=== PATIENT | male | born 1960 | race African-American/Black ===

== ENCOUNTER 2016-11-01 19:09 | Emergency (ER) | payer OTHER ==
--- NOTE | ~2016-11-01 | CT4 ---
[facility] A Service of [facility] RADIOLOGY TEXT RESULTS PATIENT: HERNANDO DÍAZ LOCATION: [facility] : [birth year] UNIT #: [id number] AGE: [address]: Jose David Adkins MD SEX: M ORDER DR: [id number] [facility] [address] [facility] [address] [place], [place] [address] [id number] E MR#: [id number] Acc #: [id number] NAME: HERNANDO DÍAZ : 1960 SEX: M STUDY DATE/TIME: 11/01/2016 19:16 UNIT: NORM ROOM: STUDY DESCRIPTION: CT Abd and Pelv Wo Cont Attending Physician: Jose David Adkins M.D. Ordering Physician: Jose David Adkins M.D. Primary Care Physician: Jeremy Hurst Pa-C MEDICAL IMAGING REPORT This report is preliminary unless electronic signature is present EXAM CT abdomen and pelvis without contrast, 11/01/2016 HISTORY Left flank pain and dysuria for [address] abdomen and pelvis was performed without contrast. This CT exam was performed with one or more of the following radiation dose reduction techniques: automatic exposure control, adjustment of mA and/or kV according to patient size, and iterative reconstruction. CT ABDOMEN: No renal calculi. No hydronephrosis or perinephric stranding. The liver, gallbladder, spleen, and adrenal glands are unremarkable. Fatty infiltration of the pancreas. No bowel dilatation. No ascites. Normal caliber abdominal aorta. CT PELVIS: No free fluid. No bowel dilatation. No adenopathy. IMPRESSION 1. No acute findings in the abdomen or pelvis. 2. No urinary calculi or obstruction. 3. No bowel dilatation. 4. Fatty infiltration of the pancreas. Dictated by... Edouard Mckinnon M.D. THIS IS AN ELECTRONICALLY VERIFIED REPORT Edouard Mckinnon M.D. at 11/02/2016 2:41 PM [facility] A Service of [facility] RADIOLOGY TEXT RESULTS PATIENT: HERNANDO DÍAZ LOCATION: [facility] : [birth year] UNIT #: [id number] AGE: [address]: Jose David Adkins MD SEX: M ORDER DR: ELENITA/carlotta TD: 11/02/2016 01:54 JOB #: [id number] MEDICAL IMAGING REPORT Page 1 of 1 COPY
[2016-11-01 18:37] LABS: URINE SOURCE CLEAN CATCH
[2016-11-01 18:48] LABS: URINE APPEARANCE CLEAR; URINE BILIRUBIN NEG (NEG); URINE BLOOD NEG (NEG); URINE COLOR YELLOW; URINE GLUCOSE NEG (NEG); URINE KETONE NEG (NEG); URINE LEUKOCYTE ESTERASE NEG (NEG); URINE NITRATE NEG (NEG); URINE PH 6.5 (5-8); URINE PROTEIN NEG (NEG); URINE SPECIFIC GRAVITY 1.026 (1.003-1.035)
[2016-11-01 18:53] LABS: CULTURE INDICATED? NO
[~2016-11-01 19:09] MED LIST: ASPIRIN81 M1 PO; BENTYL10 MG PO; BENTYL20 MG PO; CLEOCIN HCL300 M1 PO; COLACE PO; FLEXERIL10 M1 PO; FLEXERIL10 MG PO; GLYBURIDE PO; GOLYTELY SOLU4000 ML PO; IBUPROFEN800 MG PO; LIPITOR PO; LISINOPRIL10 MG PO; LORTAB 10-5001 EACH PO; LORTAB 5/500 TA1 TA1 PO; NAPROSYN250 M1 PO; PHENERGAN25 MG PO; PRILOSEC40 MG PO; VICODIN 5/1 TAB 5/50 PO; ZOFRAN ODT4 MG PO; ZOFRANODT PO
[2016-11-01 19:49] LABS: BASOPHIL% 0.4 % (0-2.5); EOSINOPHIL% 0.6 % (0.0-7.0); HEMOGLOBIN 14.4 gm/dL (13.0-16.0); LYMPHOCYTE# 1.9 X10e3 (1.0-3.5); LYMPHOCYTE% 29.8 % (17.0-45.0); MEAN CELL VOLUME 88.2 FL (83-96); MEAN CORPUSCULAR HEMOGLOBIN 28.7 PG (28-34); MEAN CORPUSCULAR HGB CONC 32.6 g/dL (30-36); MEAN PLATELET VOLUME 9.3 FL (6.5-11.5); MONOCYTE# 0.6 X10e3 (0-1.0); MONOCYTE% 9.1 % (3.0-12.0); NEUTROPHIL# 3.8 X10e3 (1.5-7.1); NEUTROPHIL% 60.1 % (40-75); PLATELET COUNT 148 X10e3 (140-420); RED BLOOD COUNT 4.99 X10e (3.90-5.60); RED CELL DISTRIBUTION WIDTH 14.1 % (11.0-15.5); WHITE BLOOD COUNT 6.4 X10e3 (4.0-10.5)
[2016-11-01 19:50] LABS: DIFF IND NO
[2016-11-01 20:51] LABS: BUN/CREATININE RATIO 13.84; CALCIUM SERUM 8.6 mg/dL (8.4-10.2); CREATININE SERUM 1.3 mg/dL (0.6-1.4); GLOM FILT RATE Estimated 71.7 mL/min (>60); POTASSIUM 4.1 mmol/L (3.5-5.1)
[2016-12-26] MEDS ORDERED: LIPITOR40 MG PO (11:45)
[2016-12-26] MEDS ORDERED: AMARYL PO (11:45)
[2016-12-26] MEDS ORDERED: LOSARTAN POTASS25 MG PO (11:46)
[2016-12-26] MEDS ORDERED: VITAMIN D250000 UNIT PO (11:47)
[2016-12-26] MEDS ORDERED: PROTONIX PO (11:47)
[2016-12-26] MEDS ORDERED: ASPIRIN81 M2 PO (11:47)
== END 2016-11-01 21:50 | disposition home or self-care (01) ==
LOC: CED 19:09
PROVIDERS: Emergency Medicine
DX: R10.9 Unspecified abdominal pain (principal); M79.642 Pain in left hand; E11.65 Type 2 diabetes mellitus with hyperglycemia; R05 Cough; E78.5 Hyperlipidemia, unspecified; I51.9 Heart disease, unspecified; F17.200 Nicotine dependence, unspecified, uncomplicated; Z87.442 Personal history of urinary calculi
CPT/HCPCS: 36415; 74176; 80048; 81003; 83690; 85025; 96374; 99284; J2270

== ENCOUNTER → 2016-12-30 | Day surgery (SDC) | payer OTHER ==
[~2016-12-30] MED LIST changes: +AMARYL PO; +ASPIRIN81 M2 PO; +AUGMENTIN PO; +CLARITIN10 M3 PO; +COZAAR25 MG PO; +FLONASE 0.05% N16 G1 INH; +LIPITOR40 MG PO; +LOSARTAN POTASS25 MG PO; +MELOXICAM15 MG PO; +OCEAN104 ML INH; +OMEPRAZOLE20 M2 PO; +PHENERGAN/CODEINE; +PROTONIX PO; +TYLENOL325 M1 PO; +VITAMIN D250000 UNIT PO
--- NOTE | ~2016-12-30 | OR ---
Unit #: [id number] #: [id number] Patient: HERNANDO DÍAZ [id number] [address] [place], [place] [address] [id number] O MR#: [id number] NAME: HERNANDO DÍAZ ROOM: Date of Procedure: 12/30/2016 Admission Date: 12/30/2016 Surgeon: Oumar Soto M.D. : 1960 Attending Physician: Oumar Soto M.D. Primary Care Physician: Jeremy Hurst Pa-C OPERATIVE REPORT PROCEDURES PERFORMED Esophagogastroduodenoscopy with biopsy, colonoscopy with biopsy, colonoscopy with snare polypectomy. INDICATIONS FOR PROCEDURE The patient with significant epigastric pain, nausea, vomiting, history of GERD, also with average risk for colorectal cancer, undergoing evaluation with upper endoscopy and colonoscopy. MEDICATIONS Monitored anesthesia. POSTOPERATIVE FINDINGS 1. Small segment Ambrocio esophagus. Biopsies taken. 2. Small hiatal hernia. 3. Severe gastritis diffusely, biopsies taken. 4. Normal duodenum and distal duodenum. 5. Polyp along the posterior lip of the IC valve. Biopsies were taken. 6. Polyp, 1 cm, transverse colon, snared and sent for pathology. 7. Good prep. PLAN Follow up on the pathology report. Continue PPI therapy. Repeat colonoscopy in 3 years. DESCRIPTION OF PROCEDURE The patient was explained of the procedure, risks, and benefits along with risks and benefits of anesthesia. He was brought to the endoscopy room. Propofol anesthesia was given. Bite block was placed. The scope was passed down the mouth into the esophagus, stomach, duodenum, and distal duodenum. Findings as described. Biopsies taken. Gently, I pulled the scope out of the patient's mouth. At this time, he was turned around and repositioned for colonoscopy. Rectal exam was done, which was normal. Colonoscope was lubricated, passed up the rectum, advanced under direct vision all the way to the cecum. Cecum was identified by ileocecal valve and appendiceal orifice. There was a possible polyp versus artifact in the posterior lip of the IC valve towards the cecum. Biopsies taken. Other polyps seen in the transverse colon, which was about 1 cm, snared and sent for histopathology. Rest of the colonic mucosa was normal. I retroflexed in the rectum, internal hemorrhoids noted. Gently, the scope was pulled out. Unit #: [id number] #: [id number] Patient: HERNANDO DÍAZ Prep was good. He tolerated it well. Dictated by... Nayan Park/carlos TD: 01/18/2017 23:15 JOB #: [id number] CC: Robert Sweeney M.D. OPERATIVE REPORT Page 1 of 1 X Oumar Soto MD X PROCEDURE OPERATIVE NOTE
== END | disposition home or self-care (01) ==
LOC: COPS 10-21 11:00
DX: K22.70 Barrett's esophagus without dysplasia (principal); K44.9 Diaphragmatic hernia without obstruction or gangrene; K29.70 Gastritis, unspecified, without bleeding; K62.89 Other specified diseases of anus and rectum; D12.3 Benign neoplasm of transverse colon; K21.9 Gastro-esophageal reflux disease without esophagitis
CPT/HCPCS: 82947; 88305; 88312

== ENCOUNTER 2017-01-11 12:06 | Emergency (ER) | payer OTHER ==
--- NOTE | ~2017-01-11 | CT71 ---
[facility] A Service of [facility] RADIOLOGY TEXT RESULTS PATIENT: HERNANDO DÍAZ LOCATION: [facility] : [birth year] UNIT #: [id number] AGE: [address]: Oma Rivas SEX: M ORDER DR: [id number] [facility] [address] [facility]. [place], [place] [address] [id number] E MR#: [id number] Acc #: [id number] NAME: HERNANDO DÍAZ : 1960 SEX: M STUDY DATE/TIME: 01/11/2017 13:00 UNIT: [facility] ROOM: STUDY DESCRIPTION: CT Head Wo Contrast Attending Physician: Oma Rivas P.A.-C. Ordering Physician: Oma Rivas P.A.-C. Primary Care Physician: Jeremy Hurst Pa-C MEDICAL IMAGING REPORT This report is preliminary unless electronic signature is present EXAM CT brain without contrast media HISTORY Chronic low back pain radiating down the legs. Bilateral leg weakness, numbness and tingling for 1 week. TECHNIQUE Axial imaging of the brain was performed without contrast media. This CT exam was performed with one or more of the following radiation dose reduction techniques: automatic exposure control, adjustment of mA and/or kV according to patient size, and iterative reconstruction. FINDINGS Ventricular size and configuration is normal. There is a CSF density lesion in the posterior fossa consistent with a small arachnoid cyst. This is unchanged. No mass lesions, mass effect, acute hemorrhage or edema. No intra or extraaxial fluid collections are seen. There is evidence of bilateral ethmoid sinus disease. CONCLUSION Incidental arachnoid cyst posterior fossa. No acute intracranial findings. Dictated by... Boris Pyle M.D. THIS IS AN ELECTRONICALLY VERIFIED REPORT Boris Pyle M.D. at 01/11/2017 5:11 PM Yazmin TD: 01/11/2017 14:37 JOB #: [id number] [facility] A Service [facility] RADIOLOGY TEXT RESULTS PATIENT: HERNANDO DÍAZ LOCATION: [facility] #: [id number] : [birth year] UNIT #: [id number] AGE: [address]: Oma Rivas SEX: M ORDER DR: MEDICAL IMAGING REPORT Page 1 of 1 COPY
[~2017-01-11 12:06] MED LIST changes: -AUGMENTIN PO; -CLARITIN10 M3 PO; -COZAAR25 MG PO; -FLONASE 0.05% N16 G1 INH; -MELOXICAM15 MG PO; -OCEAN104 ML INH; -OMEPRAZOLE20 M2 PO; -PHENERGAN/CODEINE; -TYLENOL325 M1 PO
== END 2017-01-11 13:30 | disposition home or self-care (01) ==
LOC: CFTX 12:06 → CED 12:06 → CFTX 13:20
DX: M54.16 Radiculopathy, lumbar region (principal); I25.10 Atherosclerotic heart disease of native coronary artery without angina pectoris; Z90.49 Acquired absence of other specified parts of digestive tract; F17.210 Nicotine dependence, cigarettes, uncomplicated
CPT/HCPCS: 70450; 96372; 99284; J1885

== ENCOUNTER 2017-01-24 11:38 | Emergency (ER) | payer OTHER ==
--- NOTE | ~2017-01-24 | CT4 ---
[facility] A Service of [facility] RADIOLOGY TEXT RESULTS PATIENT: HERNANDO DÍAZ LOCATION: [facility] : [birth year] UNIT #: [id number] AGE: [address]: Cr Steiner MD SEX: M ORDER DR: [id number] [facility] [address] [place], [place] [address] [id number] E MR#: [id number] Acc #: [id number] NAME: HERNANDO DÍAZ : 1960 SEX: M STUDY DATE/TIME: 01/24/2017 14:19 UNIT: [facility] ROOM: STUDY DESCRIPTION: CT Abd and Pelv Wo Cont Attending Physician: Cr Steiner M.D. Ordering Physician: Cr Stiener M.D. Primary Care Physician: Jeremy Hurst Pa-C MEDICAL IMAGING REPORT This report is preliminary unless electronic signature is present EXAM CT abdomen and pelvis without contrast, 01/24/2017. HISTORY Lower back pain and difficulty urinating since 01/23/2017. History of kidney stones. Additional history of hypertension, coronary artery disease, previous transient ischemic attack. Previous lithotripsy procedure and appendectomy. COMPARISON CT abdomen and pelvis without contrast, 11/01/2016. PROCEDURE 3-mm noncontrast axial images from the lung bases through the lesser trochanters. Enteric contrast was not administered. Sagittal and coronal reformatted images were obtained. This CT exam was performed with one or more of the following radiation dose reduction techniques: automatic exposure control, adjustment of mA and/or kV according to patient size, and iterative reconstruction. FINDINGS ABDOMEN FINDINGS: No renal or ureteral stone, hydronephrosis, hydroureter or perinephric inflammation is seen. Kidneys have an unremarkable noncontrast appearance. Lung bases are clear. The liver, gallbladder, spleen, adrenals are normal. There is fatty infiltration of the pancreatic parenchyma and around the vicinity of the pancreatic tail, similar to the prior examination. Limited evaluation of the bowel is due to lack of enteric contrast. No focal bowel inflammation is seen. Diverticular changes are present within the descending and sigmoid colon segments without evidence of acute diverticulitis. The appendix is not visualized, consistent with history of appendectomy. [facility]. [facility] A Service of [facility] RADIOLOGY TEXT RESULTS PATIENT: HERNANDO DÍAZ LOCATION: [facility] : [birth year] UNIT #: [id number] AGE: [address]: Cr Steiner MD SEX: M ORDER DR: PELVIS FINDINGS: Urinary bladder, prostate, and rectum are normal. No pelvic adenopathy or free fluid is identified. Facet arthropathy at L4-L5 and L5-S1. No acute or suspicious osseous abnormalities. IMPRESSION 1. No acute findings in the abdomen or pelvis. No urinary tract stone or hydronephrosis. Urinary bladder is decompressed and appears unremarkable. 2. Uncomplicated colonic diverticulosis. 3. Appendectomy. 4. Lower lumbar facet arthropathy. 5. Fatty infiltration within the pancreas. Dictated by... Nilam See M.D. THIS IS AN ELECTRONICALLY VERIFIED REPORT Nilam See M.D. at 01/25/2017 10:39 AM OSCAR/luc TD: 01/24/2017 18:15 JOB #: [id number] MEDICAL IMAGING REPORT Page 1 of 1 COPY
[2017-01-24 13:30] LABS: BASOPHIL% 0.4 % (0-2.5); EOSINOPHIL% 0.8 % (0.0-7.0); HEMATOCRIT 42.4 % (38.0-50.0); HEMOGLOBIN 14.1 gm/dL (13.0-16.0); LYMPHOCYTE# 1.8 X10e3 (1.0-3.5); LYMPHOCYTE% 35.9 % (17.0-45.0); MEAN CELL VOLUME 89.1 FL (83-96); MEAN CORPUSCULAR HEMOGLOBIN 29.6 PG (28-34); MEAN CORPUSCULAR HGB CONC 33.2 g/dL (30-36); MEAN PLATELET VOLUME 8.9 FL (6.5-11.5); MONOCYTE# 0.4 X10e3 (0-1.0); MONOCYTE% 8.7 % (3.0-12.0); NEUTROPHIL# 2.6 X10e3 (1.5-7.1); NEUTROPHIL% 54.2 % (40-75); PLATELET COUNT 137 X10e3 (140-420); RED BLOOD COUNT 4.76 X10e (3.90-5.60); RED CELL DISTRIBUTION WIDTH 14.3 % (11.0-15.5); WHITE BLOOD COUNT 4.9 X10e3 (4.0-10.5)
[2017-01-24 13:35] LABS: DIFF IND NO
[2017-01-24 13:51] LABS: ALBUMIN SERUM 3.8 g/dL (3.5-5.0); BILIRUBIN, DIRECT 0.1 mg/dL (0.0-0.2); BILIRUBIN,INDIRECT 0.6 mg/dL (0.0-0.9); BILIRUBIN,TOTAL 0.7 mg/dL (0.2-2.0); CALCIUM SERUM 8.8 mg/dL (8.4-10.2); GLOM FILT RATE Estimated 98.5 mL/min (>60); POTASSIUM 4.2 mmol/L (3.5-5.1); PROTEIN TOTAL SERUM 6.7 g/dL (6.0-8.3)
[2017-01-24 14:16] LABS: URINE SOURCE CLEAN CATCH
[2017-01-24 14:30] LABS: URINE APPEARANCE CLEAR; URINE BILIRUBIN NEG (NEG); URINE BLOOD NEG (NEG); URINE COLOR YELLOW; URINE GLUCOSE 100 MG/DL (NEG); URINE KETONE NEG (NEG); URINE LEUKOCYTE ESTERASE NEG (NEG); URINE NITRATE NEG (NEG); URINE PH 5.5 (5-8); URINE PROTEIN NEG (NEG); URINE SPECIFIC GRAVITY 1.029 (1.003-1.035)
[2017-01-24 14:38] LABS: CULTURE INDICATED? NO
[2017-01-24 14:40] LABS: AMPHETAMINE NEG (NEG); BARBITURATES NEG (NEG); BENZODIAZEPINES NEG (NEG); COCAINE NEG (NEG); MARIJUANA NEG (NEG); OPIATES POS (NEG); TRICYCLIC ANTIDEPRESSANTS NEG (NEG); U METHADONE NEG (NEG)
== END 2017-01-24 15:41 | disposition home or self-care (01) ==
LOC: CED 11:38
PROVIDERS: Emergency Medicine
DX: M54.5 Low back pain (principal); G89.29 Other chronic pain
CPT/HCPCS: 36415; 74176; 80048; 80076; 80307; 81003; 85025; 96361; 96374; 99284; J1885

== ENCOUNTER 2017-02-28 20:43 | Inpatient (IN) | payer OTHER ==
[~2017-02-28] VITALS: Ht 167.6 cm; Wt 107.6 kg
--- NOTE | ~2017-02-28 | CR72 ---
[facility] A Service of [facility] RADIOLOGY TEXT RESULTS PATIENT: HERNANDO DÍAZ LOCATION: [facility] : [birth year] UNIT #: [id number] AGE: [address]: Delia Cain MD SEX: M ORDER DR: [id number] [facility] [address] [place], [place] [address] [id number] I MR#: [id number] Acc #: [id number] NAME: HERNANDO DÍAZ : 1960 SEX: M STUDY DATE/TIME: 02/28/2017 21:15 UNIT: [facility] ROOM: [facility] STUDY DESCRIPTION: CR Chest Single View Portable Attending Physician: Delia Cain M.D. Ordering Physician: Ed Doctor [id number] [facility] Primary Care Physician: Jeremy Hurst Pa-C MEDICAL IMAGING REPORT This report is preliminary unless electronic signature is present EXAM Portable chest 02/28/2017 HISTORY Chest pain and shortness of breath beginning this morning, coronary artery disease. Benign essential hypertension. FINDINGS A single AP portable view of the chest shows both lungs to be clear. The heart is normal in size. The mediastinal contour is normal. No significant bone abnormalities are seen. IMPRESSION Normal portable chest. Dictated by... Rafael Valentino M.D. THIS IS AN ELECTRONICALLY VERIFIED REPORT Rafael Valentino M.D. at 03/01/2017 2:20 PM LAWRENCE/elin TD: 03/01/2017 08:44 JOB #: [id number] MEDICAL IMAGING REPORT Page 1 of 1 COPY
--- NOTE | ~2017-02-28 | EKG ---
PATIENT: HERNANDO DÍAZ UNIT #: [id number] Ventricular Rate: 69 BPM Atrial Rate: 69 BPM P-R Interval: 140 ms QRS Duration: 98 ms Q-T Interval: 384 ms QTC Calculation(Bezet): 411 ms P [place]: 59 degrees Calculated R [place]: 8 degrees Calculated T [place]: -38 degrees Diagnosis Line: Normal sinus rhythm Diagnosis Line: T wave abnormality, consider inferior ischemia Diagnosis Line: Abnormal ECG Diagnosis Line: When compared with ECG of 28-FEB-2017 20:48, Diagnosis Line: (unconfirmed) Diagnosis Line: Aberrant conduction is no longer Present Diagnosis Line: T wave inversion now evident in Inferior leads Diagnosis Line: Inverted T waves have replaced nonspecific T wave Diagnosis Line: abnormality in Lateral leads Diagnosis Line: Confirmed by MARTHA FUENTES MD ([id number]) on Diagnosis Line: 03/02/2017 7:13:04 AM INTERPRETING : FACUNDO
--- NOTE | ~2017-02-28 | DS ---
Unit #: [id number] #: [id number] Patient: HERNANDO DÍAZ [id number] [address] [address] [id number] I MR#: [id number] NAME: HERNANDO DÍAZ ROOM: 307 Age: 56 Sex: M Admission Date: 03/01/2017 : 1960 Discharge Date: 03/02/2017 Attending Physician: Delia Cain M.D. Primary Care Physician: Jeremy Hurst Pa-C DISCHARGE SUMMARY FINAL DIAGNOSES 1. Acute bronchitis. 2. Chest pain. 3. Sinusitis. 4. Coronary artery disease with history of percutaneous coronary intervention/stent. 5. Cough. 6. Left ventricular ejection fraction of 55% with mild left ventricular hypertrophy. 7. Diabetes mellitus type 2. 8. Hyperlipidemia. 9. History of severe gastritis with Ambrocio esophagus. DISCHARGE MEDICATIONS 1. Tylenol 650 q.6 p.r.n. 2. Flonase nasal spray daily. 3. Claritin 10 mg daily. 4. Aspirin 81 mg daily. 5. Cozaar 25 mg daily. 6. Lipitor 10 mg daily. 7. Meloxicam 15 mg p.r.n. 8. Omeprazole 20 mg b.i.d. 9. Amaryl 4 mg daily. 10. Saline nasal spray q.i.d. 11. Augmentin 500 mg b.i.d. for 7 days. CON[address]ULTATIONS D[address]ING HOSPITALIZATION Dr. Campo from cardiology service. DIAGNOSTIC STUDIES LAB WORKUP ON DISCHARGE: Troponin less than 0.03. Lipid profile shows total cholesterol 101, triglycerides 60, LDL 56. D-dimer 214 (normal range). WBC 5.5, hemoglobin 13.4, hematocrit 40.8, platelet count 150. HOSPITAL COURSE Mr. Díaz is a 56-year-old male who has history of significant cardiac disease. Was admitted to the hospital with chest pain. Acute myocardial infarction was ruled out. Dr. Campo was consulted. The patient has outpatient cardiac cath scheduled for March 08. The patient was also diagnosed with upper respiratory infection/bronchitis/sinusitis and allergic rhinitis. The patient received IV Rocephin during hospitalization and doses of Solu-Medrol. He is doing much better at this time, is being discharged home on above Unit #: [id number] #: [id number] Patient: HERNANDO DÍAZ. Tobacco cessation counselling has been done. EXAMINATION ON DISCHARGE VITAL SIGNS: Blood pressure 132/82, respiratory rate 18, pulse 62, temperature 98.1. RESPIRATORY: Chest has fair air entry. No adventitious sounds. Some wheezing was heard. HEART: S1, S2 positive. Regular rhythm. ABDOMEN: Soft. EXTREMITIES: Negative edema. DISCHARGE INSTRUCTIONS 1. The patient is being discharged home in stable condition. 2. The patient has been scheduled for cardiac cath on March 08 at 12:30 p.m. 3. Follow up with Dr. Campo 05/24/17 at 12:15 p.m. 4. Follow up with primary care provider in 1 week. Dictated by... Nayan Ramos TD: 03/03/2017 12:34 JOB #: [id number] DISCHARGE SUMMARY Page 1 of 1 X Delia Cain MD X DISCHARGE SUMMARY
--- NOTE | ~2017-02-28 | EKG ---
PATIENT: HERNANDO DÍAZ UNIT #: [id number] Ventricular Rate: 60 BPM Atrial Rate: 60 BPM P-R Interval: 144 ms QRS Duration: 88 ms Q-T Interval: 392 ms QTC Calculation(Bezet): 392 ms P [place]: 55 degrees Calculated R [place]: -27 degrees Calculated T [place]: -18 degrees Diagnosis Line: Normal sinus rhythm Diagnosis Line: Minimal voltage criteria for LVH, may be normal Diagnosis Line: variant Diagnosis Line: Nonspecific T wave abnormality Diagnosis Line: Abnormal ECG Diagnosis Line: When compared with ECG of 01-MAR-2017 06:34, Diagnosis Line: Nonspecific T wave abnormality no longer evident Diagnosis Line: in Anterior leads Diagnosis Line: Confirmed by MARVEL JAIME, IESHA ([id number]) on Diagnosis Line: 03/02/2017 3:54:07 PM INTERPRETING MD: NATI
--- NOTE | ~2017-02-28 | CT71 ---
[facility] A Service of [facility] RADIOLOGY TEXT RESULTS PATIENT: HERNANDO DÍAZ LOCATION: [facility] : [birth year] UNIT #: [id number] AGE: [address]: Delia Cain MD SEX: M ORDER DR: [id number] [facility] [address] [place], [place] [address] [id number] I MR#: [id number] Acc #: [id number] NAME: HERNANDO DÍAZ : 1960 SEX: M STUDY DATE/TIME: 03/01/2017 00:25 UNIT: A [facility] ROOM: [facility] STUDY DESCRIPTION: CT Head Wo Contrast Attending Physician: Delia Cain M.D. Ordering Physician: Delano Moya D.O. Primary Care Physician: Jeremy Hurst Pa-C MEDICAL IMAGING REPORT This report is preliminary unless electronic signature is present EXAM Head CT, 03/01 at 00:25 hours INDICATION Headache and dizziness today. Frontal headache. COMPARISON 01/11/2017 TECHNIQUE Axial images were obtained from the base to the vertex without contrast. This CT exam was performed with one or more of the following radiation dose reduction techniques: automatic exposure control, adjustment of mA and/or kV according to patient size, and iterative reconstruction. FINDINGS Ventricular size and configuration are stable. There is no acute infarct or hemorrhage. There are no masses. There is a stable arachnoid cyst in the left posterior fossa. There are no skull fractures. There is chronic mucosal thickening in the ethmoid air cells. IMPRESSION No acute findings in the brain. Mild chronic mucosal thickening in the ethmoid air cells. Otherwise negative. Dictated by... Declan Cordero Jr., M.D. THIS IS AN ELECTRONICALLY VERIFIED REPORT Declan Cordero Jr., M.D. at 03/01/2017 9:39 PM FEROZ/jaz [facility] A Service of [facility] RADIOLOGY TEXT RESULTS PATIENT: HERNANDO DÍAZ LOCATION: [facility] : [birth year] UNIT #: [id number] AGE: [address]: Delia Cain MD SEX: M ORDER DR: TD: 03/01/2017 09:32 JOB #: [id number] MEDICAL IMAGING REPORT Page 1 of 1 COPY
--- NOTE | ~2017-02-28 | CO ---
Unit #: [id number] #: [id number] Patient: HERNANDO DÍAZ [id number] [facility]. [place], [place] [address] [id number] MR#: [id number] NAME: HERNANDO DÍAZ ROOM: 307 Age: 56 Sex: M Admission Date: 03/01/2017 : 1960 Attending Physician: Delia Cain M.D. Primary Care Physician: Jeremy Hurst Pa-C Consultation Date: 03/01/2017 CONSULTATION REPORT REASON FOR CONSULTATION Chest pain. HISTORY OF PRESENT ILLNESS This is a 56-year-old, male, who has had a previous ID he said about 10 years ago and had a stent placed at [facility], but details are unavailable, had a Lexiscan in 2011 that showed ejection fraction of 46% with no ischemia; however, the left ventricle dilatation would favor balanced ischemia with EF of 50% to 55% on an echo done at that time also. He is a diabetic, hypertension, history of kidney stones and continues to smoke. The patient has been having some nasal and chest congestion. He has been having a fairly nonproductive cough. He said it has been persistent and worsening. He feels real congested. He said when he coughs, he has some midsternal chest pain. No radiation to the neck, bilateral jaws, shoulders, arms or elbows. He describes it as just a tight stabbing at times, but he does admit that it is mostly only when he is coughing. He denies any nausea. No vomiting or diarrhea. He did complain of headache and slight dizziness, but no presyncope or syncope. Denies any fever, but said he thought he had a chill a couple of days ago. No shortness of breath. Denies any paroxysmal nocturnal dyspnea or orthopnea. In the emergency room, the patient's blood pressure was 128/73, heart rate 71, respirations 18, temperature 98.9, O2 saturations 99% on room air. His chest x-ray did not show anything acute. His CT of the head because he complained of some headache and dizziness did not show anything, but some mild chronic mucosal thickening in the ethmoid cells. His EKG showed normal sinus rhythm. He did have some T-wave inversions in the inferior leads. The patient will be admitted with chest pain. Cardiology consult to assist with evaluation and management. The patient has not seen a heart doctor since 2011. PAST MEDICAL HISTORY 1. About 10 years ago had a ID and status post PCI and stents, details unavailable. 2. 07/2012, Lexiscan Cardiolite stress test, LVEF was found to be 46%, did show LV size mildly enlarged. Analysis of the scan showed a slightly enlarged ventricle with stress. There is apical thinning, but otherwise normal perfusion with no change between and uptake is better with stress than at rest. So, cannot rule out balanced ischemia, although the characteristics of the perfusion does not appear to support balanced ischemia. However, the LV dilatation would favor balanced ischemia. 3. 07/2012, 2D echo, LVEF of 50% to 55%. Normal valves. Unit #: [id number] #: [id number] Patient: HERNANDO DÍAZ 4. Diabetes mellitus, type 2. 5. Hyperlipidemia. 6. History of kidney stones. 7. Degenerative disk disease. 8. Nicotine abuse. 9. 12/2016, EGD revealed Ambrocio's esophagus severe gastritis and a polyp was removed. PAST SURGICAL HISTORY 1. 12/2016, EGD and colonoscopy. 2. Status post PCI and stents placed about 10 years ago [address] [facility], details unavailable. 3. Lithotripsy for kidney stones. 4. Appendectomy. 5. Mass removed from his right breast. 6. Cervical fusion. HOME MEDICATIONS Meloxicam 15 mg p.o. daily, Amaryl 4 mg p.o. before breakfast, aspirin 81 mg p.o. daily, omeprazole 20 mg p.o. b.i.d., Cozaar 25 mg p.o. daily, atorvastatin 40 mg p.o. q.h.s. ALLERGIES No known drug allergies. SOCIAL HISTORY The patient lives with his fiancee. He is trying to get disability because of his back and neck pain. He continues to smoke a few cigarettes a day, but says he has tried to really cut back. No alcohol or drug abuse. FAMILY HISTORY His mother had an ID in her 70s, but still living. Father is . His older brother just recently had a what sounds like a defibrillator for cardiomyopathy. REVIEW OF SYSTEMS See details in HPI. PHYSICAL EXAMINATION GENERAL: Mr. Díaz is a 56-year-old, male, in no acute respiratory distress. He is awake, alert, and oriented. VITAL SIGNS: Blood pressure is 136/82, heart rate 66, respirations 16, temperature 98.9, O2 saturations 100% on room air. NECK: Trachea midline. No thyromegaly or lymphadenopathy. Normal carotid upstrokes. No jugular venous distention. HEART: S1, S2. Regular rate and rhythm. No clicks, murmurs, or rubs. LUNGS: Some faint rhonchi that clears with cough in upper airways. ABDOMEN: Slightly obese, soft, nontender. EXTREMITIES: Pedal pulses are palpable. No pedal edema. DIAGNOSTIC DATA LABORATORY RESULTS: Glucose is 129, BUN 18, creatinine 1.1, eGFR is 87.8. Sodium 139, potassium 3.5, chloride 106, CO2 of 27, calcium is 8.8, total protein 6.9, albumin 3.9, bilirubin total 0.5. AST is 17, ALT 16, alkaline phosphatase is 73. D-dimer is 214. WBC 5.5, hemoglobin 13.4, hematocrit 40.8, platelets is 150. Initial cardiac enzymes; CK-MB is less than 1.0, troponin less than 0.05. CK-MB is less than 1.0, troponin less than 0.03. Fasting lipid profile; cholesterol is 101, triglycerides 60, Unit #: [id number] #: [id number] Patient: HERNANDO DÍAZ LDL 56, HDL is 33. IMAGING STUDIES: Chest x-ray is normal. Lungs are clear. CT of the head without contrast shows nothing acute. EKG this morning shows normal sinus rhythm, T-wave inversion in inferior leads and lateral leads and left ventricular hypertrophy, left atrial abnormality. IMPRESSION 1. Chest pain, questionable etiology. 2. History of previous myocardial infarction, percutaneous coronary intervention and stents about 10 years ago and borderline stress test in 2011. 3. Acute bronchitis and sinusitis. 4. Left ventricular ejection fraction of 50% to 55% on last echo. 5. Diabetes mellitus, type 2. 6. Hyperlipidemia. 7. Previous kidney stones. 8. Degenerative disk disease. 9. Nicotine abuse. PLAN 1. After discussing the patient's symptoms and knowing his history and abnormalities on the EKG, we will most likely recommend a heart catheterization to re-evaluate his ischemic heart disease. 2. We will continue the patient on aspirin and he is on Cozaar, also on statin and nitrate. The patient will also continue on daily dose of Lovenox. Obtain a fasting lipid profile and evaluate. 3. Obtain the cardiac cath report from [facility] for review. 4. Treatment for his acute bronchitis. 5. Obtain a 2D echo to re-evaluate his LV function and valves. Even though, the patient's symptoms are atypical; however, his EKG has some nonspecific changes and he will need a heart catheterization tomorrow versus early next week as an outpatient. Encouraged the patient to completely quit smoking. 6. There are no signs or symptoms of acute congestive heart failure. 7. Further recommendations pending per Dr. Campo. Dictated by... Darien Burris/carlos TD: 03/02/2017 03:42 JOB #: [id number] CONSULTATION REPORT Page 1 of 1 X Oriana Snow APRN X CONSULTATION REPORT
--- NOTE | ~2017-02-28 | EKG ---
PATIENT: HERNANDO DÍAZ UNIT #: [id number] Ventricular Rate: 76 BPM Atrial Rate: 76 BPM P-R Interval: 140 ms QRS Duration: 96 ms Q-T Interval: 380 ms QTC Calculation(Bezet): 427 ms P [place]: 56 degrees Calculated R [place]: -25 degrees Calculated T [place]: 54 degrees Diagnosis Line: Sinus rhythm with Premature atrial complexes with Diagnosis Line: Aberrant conduction Diagnosis Line: Minimal voltage criteria for LVH, may be normal Diagnosis Line: variant Diagnosis Line: Nonspecific T wave abnormality Diagnosis Line: Abnormal ECG Diagnosis Line: When compared with ECG of 22-SEP-2016 06:06, Diagnosis Line: Aberrant conduction is now Present Diagnosis Line: Confirmed by SINGH WOLF MD ([id number]) on Diagnosis Line: 03/01/2017 11:57:53 AM INTERPRETING MD: LUCIANO JAIME
--- NOTE | ~2017-02-28 | HP ---
Unit #: [id number] #: [id number] Patient: HERNANDO DÍAZ [address] [address] [id number] I MR#: [id number] NAME: HERNANDO DÍAZ ROOM: 307 Age: 56 Sex: M Admission Date: 03/01/2017 : 1960 Attending Physician: Delia Cain M.D. Primary Care Physician: Jeremy Hurst Pa-C HISTORY AND PHYSICAL CHIEF COMPLAINT Chest pain. HISTORY OF PRESENTING ILLNESS A 56-year-old male who has a history of coronary artery disease, status post stenting, history of diabetes mellitus, and hyperlipidemia, came because he started having chest pain yesterday at 7 p.m. It was intermittent lasting a few minutes. It was moderate in severity. There was no radiation of the pain. He did have pain during breathing, and he was coughing. According to him, there is no sputum, but when he blows his nose, it is yellowish-colored drainage. With deep breathing, it hurts also. Patient was admitted for chest pain. PAST MEDICAL HISTORY 1. Coronary artery disease, status post stenting at [facility]. 2. Hyperlipidemia. 3. History of kidney stone. 4. Degenerative disc disease. 5. Tobacco abuse. 6. Severe gastritis and Ambrocio esophagus, status post EGD in December 2016. PAST SURGICAL HISTORY 1. Cardiac catheterization. 2. Cardiac stent placement. 3. Lithotripsy. 4. Appendectomy. 5. Mass removed from the breast. 6. Back cervical fusion. SOCIAL HISTORY Patient is a smoker. No history of alcohol abuse or drug abuse. FAMILY HISTORY Coronary artery disease in his mother. ALLERGIES No known drug allergies. HOME MEDICATIONS 1. Meloxicam 15 mg daily. 2. Amaryl 4 mg before breakfast. 3. Aspirin 81 mg daily. 4. Omeprazole 20 mg twice daily. 5. Cozaar 25 mg daily. Unit #: [id number] #: [id number] Patient: HERNANDO DÍAZ These medications were told to us by patient. There are a lot more medications which are from the pharmacy, so I am not sure. We are going to go by what patient has told us. REVIEW OF SYSTEMS Patient does complain of headaches and does complain of nasal congestion, nasal drainage, and postnasal drip. No complaint of abdominal pain, no complaint of constipation or diarrhea, and no history of syncopal episodes. He does complain of some dizziness too. The rest is as per History of Presenting Illness. PHYSICAL EXAMINATION GENERAL: Patient is being evaluated in room 307. VITAL SIGNS: Blood pressure is 127/77, respiratory rate 16, pulse 66, temperature 99.5, and oxygen saturation is 100%. HEENT: Head is normocephalic. Eye movements are normal. Postnasal drainage is seen. NECK: Supple. CHEST: Fair air entry. A few wheezes heard. CARDIOVASCULAR: S1 and S2 positive. Regular rhythm. ABDOMEN: Obese and soft. EXTREMITIES: Negative edema. CENTRAL NERVOUS SYSTEM: Awake, alert, and oriented x3. No focal neurological deficit. DIAGNOSTIC STUDIES LABORATORY: WBC 5.5, hemoglobin 13.4, hematocrit 40.8, and platelet count of 150,000. Sodium 139, potassium 3.5, chloride 106, BUN 18, and creatinine 1.1. Liver enzymes are normal. D-dimer is 214. Troponin is less than 0.05. Total cholesterol 101, triglycerides 60, LDL 56, and HDL 33. Repeat troponin is less than 0.03. IMAGING: CT scan of the head without contrast was done which showed no acute finding in the brain. Mild chronic mucosal thickening in the ethmoid air cells is seen. Chest x-ray, single view, was showed normal portable chest. CARDIOLOGY: EKG showed sinus rhythm with premature atrial complexes. ASSESSMENT Patient is being admitted to telemetry unit with diagnoses of: 1. Chest pain with a history of coronary artery disease. 2. Upper respiratory infection. 3. Allergic rhinitis. 4. Acute bronchitis. 5. Tobacco abuse. 6. Diabetes mellitus type 2. 7. Hyperlipidemia. 8. Chronic back pain. PLAN Admit to telemetry unit. Dr. Campo has been consulted. Echocardiogram was already done which showed ejection fraction of 55%, no regional wall motion abnormality, mild concentric left ventricular hypertrophy, mildly dilated left atrium, mild mitral regurgitation is present, and no evidence of any pericardial effusion. Claritin 10 mg p.o. daily, normal saline nasal spray q.i.d., Flonase nasal spray b.i.d., IV Rocephin 1 gram daily, Unit #: [id number] #: [id number] Patient: BREHERNANDO and IV Solu-Medrol 40 mg q.12. Home medications have been reviewed and adjusted. Tobacco cessation counseling has been done. The plan of care has been discussed with patient. Please refer to progress note for further orders. Dictated by Nayan Ramos TD: 03/01/2017 18:23 JOB #: [id number] HISTORY AND PHYSICAL Page 1 of 1 X Delia Cain MD X HISTORY AND PHYSICAL
[2017-02-28 23:36] LABS: POC - CKMB <1.0 ng/mL (0.0-7.9); POC - TROPONIN <0.05 ng/mL (<=0.05)
[2017-02-28 23:45] LABS: BASOPHIL% 0.2 % (0-2.5); EOSINOPHIL% 0.8 % (0.0-7.0); HEMATOCRIT 40.8 % (38.0-50.0); HEMOGLOBIN 13.4 gm/dL (13.0-16.0); LYMPHOCYTE% 17.8 % (17.0-45.0); MEAN CELL VOLUME 88.7 FL (83-96); MEAN CORPUSCULAR HEMOGLOBIN 29.2 PG (28-34); MEAN CORPUSCULAR HGB CONC 32.9 g/dL (30-36); MEAN PLATELET VOLUME 8.9 FL (6.5-11.5); MONOCYTE# 0.5 X10e3 (0-1.0); MONOCYTE% 9.7 % (3.0-12.0); NEUTROPHIL# 3.9 X10e3 (1.5-7.1); NEUTROPHIL% 71.5 % (40-75); PLATELET COUNT 150 X10e3 (140-420); WHITE BLOOD COUNT 5.5 X10e3 (4.0-10.5)
[2017-02-28 23:46] LABS: DIFF IND NO
[2017-03-01 00:07] LABS: ALBUMIN SERUM 3.9 g/dL (3.5-5.0); BILIRUBIN, DIRECT 0.1 mg/dL (0.0-0.2); BILIRUBIN,INDIRECT 0.4 mg/dL (0.0-0.9); BILIRUBIN,TOTAL 0.5 mg/dL (0.2-2.0); BUN/CREATININE RATIO 16.36; CALCIUM SERUM 8.8 mg/dL (8.4-10.2); CREATININE SERUM 1.1 mg/dL (0.6-1.4); GLOM FILT RATE Estimated 87.8 mL/min (>60); POTASSIUM 3.5 mmol/L (3.5-5.1); PROTEIN TOTAL SERUM 6.9 g/dL (6.0-8.3)
[2017-03-01 02:10] LABS: POC - CKMB <1.0 ng/mL (0.0-7.9); POC - TROPONIN <0.05 ng/mL (<=0.05)
[2017-03-01] MEDS ORDERED: MELOXICAM15 MG PO (07:51)
[2017-03-01] MEDS ORDERED: AMARYL PO (07:53)
[2017-03-01] MEDS ORDERED: ASPIRIN81 M2 PO (07:54)
[2017-03-01] MEDS ORDERED: OMEPRAZOLE20 M2 PO (07:54)
[2017-03-01] MEDS ORDERED: COZAAR25 MG PO (07:56)
[2017-03-01 08:39] LABS: CHOLESTEROL 101 mg/dL (0-200); HDL CHOLESTEROL 33 mg/dL (29-75); LDL CHOLESTEROL 56 mg/dL (-130); LDL/HDL RATIO 2 RATIO (0-4); TRIGLYCERIDES 60 mg/dL (10-160)
[2017-03-01 08:57] LABS: %MB 0.5 % (0.0-4.0)
[2017-03-02] MEDS ORDERED: TYLENOL325 M1 PO (14:41)
[2017-03-02] MEDS ORDERED: FLONASE 0.05% N16 G1 INH (14:42)
[2017-03-02] MEDS ORDERED: CLARITIN10 M3 PO (14:44)
[2017-03-02] MEDS ORDERED: LIPITOR PO (14:45)
[2017-03-02] MEDS ORDERED: OCEAN104 ML INH (14:46)
[2017-03-02] MEDS ORDERED: AUGMENTIN PO (14:47)
[2017-03-02] MEDS ORDERED: PHENERGAN/CODEINE (14:48)
== END 2017-03-02 16:09 | disposition home or self-care (01) | DRG 203 ==
LOC: CED 20:43 → C3A PCU 03-01 01:54 → CEDOF 03-01 01:54 → C3A PCU 03-01 04:31
PROVIDERS: Emergency Medicine; Physician Assistant Medical
PROC: B24BYZZ Ultrasonography of Heart with Aorta using Other Contrast (ICD-10-PCS; principal; 2017-03-01)
DX: J20.9 Acute bronchitis, unspecified (principal); E78.5 Hyperlipidemia, unspecified; R07.9 Chest pain, unspecified; I25.2 Old myocardial infarction; I25.10 Atherosclerotic heart disease of native coronary artery without angina pectoris; Z95.5 Presence of coronary angioplasty implant and graft; F17.210 Nicotine dependence, cigarettes, uncomplicated; Z87.442 Personal history of urinary calculi; Z79.82 Long term (current) use of aspirin; J06.9 Acute upper respiratory infection, unspecified; J30.9 Allergic rhinitis, unspecified; M54.9 Dorsalgia, unspecified; G89.29 Other chronic pain; I34.0 Nonrheumatic mitral (valve) insufficiency; J01.90 Acute sinusitis, unspecified
CPT/HCPCS: 36415; 70450; 71010; 80048; 80061; 80076; 82550; 82553; 84484; 85025; 85379; 90732; 93005; 93306; 96374; 96375; 99285; G0009; J0696; J1650; J2270; J2405; J2920

== ENCOUNTER → 2017-03-08 | Outpatient (CLI) | payer OTHER ==
[~2017-03-08] VITALS: Ht 167.6 cm; Wt 106.8 kg
[~2017-03-08] MED LIST changes: +AUGMENTIN PO; +CLARITIN10 M3 PO; +COZAAR25 MG PO; +FLONASE 0.05% N16 G1 INH; +MELOXICAM15 MG PO; +OCEAN104 ML INH; +OMEPRAZOLE20 M2 PO; +PHENERGAN/CODEINE; +TYLENOL325 M1 PO
--- NOTE | ~2017-03-08 | EKG ---
PATIENT: HERNANDO DÍAZ UNIT #: [id number] Ventricular Rate: 54 BPM Atrial Rate: 54 BPM P-R Interval: 140 ms QRS Duration: 92 ms Q-T Interval: 436 ms QTC Calculation(Bezet): 413 ms P [place]: 45 degrees Calculated R [place]: -31 degrees Calculated T [place]: -3 degrees Diagnosis Line: Sinus bradycardia Diagnosis Line: Left axis deviation Diagnosis Line: Moderate voltage criteria for LVH, may be normal Diagnosis Line: variant Diagnosis Line: Borderline ECG Diagnosis Line: When compared with ECG of 02-MAR-2017 07:02, Diagnosis Line: No significant change was found Diagnosis Line: Confirmed by JERRY SUAREZ MD ([id number]) on 03/08/2017 Diagnosis Line: 7:45:05 PM INTERPRETING MD: ERICK JAIME
[2017-03-08 09:35] LABS: HEMATOCRIT 43.7 % (38.0-50.0); HEMOGLOBIN 14.7 gm/dL (13.0-16.0); MEAN CELL VOLUME 87.6 FL (83-96); MEAN CORPUSCULAR HEMOGLOBIN 29.4 PG (28-34); MEAN CORPUSCULAR HGB CONC 33.5 g/dL (30-36); MEAN PLATELET VOLUME 8.5 FL (6.5-11.5); RED BLOOD COUNT 4.99 X10e (3.90-5.60); RED CELL DISTRIBUTION WIDTH 13.5 % (11.0-15.5); WHITE BLOOD COUNT 4.2 X10e3 (4.0-10.5)
[2017-03-08 09:54] LABS: INR 1.1; PARTIAL THROMBOPLASTIN TIME 24.7 SECONDS (23.5-31.3); PROTHROMBIN TIME (PATIENT) 11.5 SECONDS (10.0-11.7)
[2017-03-08 10:05] LABS: CALCIUM SERUM 8.7 mg/dL (8.4-10.2); GLOM FILT RATE Estimated 98.5 mL/min (>60); POTASSIUM 4.1 mmol/L (3.5-5.1)
== END | disposition home or self-care (01) ==
LOC: CCVL 09:02
PROVIDERS: Internal Medicine Cardiovascular Disease
DX: I11.9 Hypertensive heart disease without heart failure (principal); R07.89 Other chest pain; I25.2 Old myocardial infarction; E11.9 Type 2 diabetes mellitus without complications; E78.5 Hyperlipidemia, unspecified; Z95.5 Presence of coronary angioplasty implant and graft; F17.210 Nicotine dependence, cigarettes, uncomplicated
CPT/HCPCS: 36415; 80048; 85027; 85610; 85730; 93005; C1769; C1887; C1894; J1644; J2250; J3010